=== PATIENT | female | born 1955 | race Caucasian/White ===

== ENCOUNTER 2017-01-14 20:03 | Observation (INO) ==
[2017-01-14] MEDS ORDERED: ASPIRIN PO STA (20:24)
[2017-01-14] MEDS ORDERED: ASPIRIN ONE (20:27)
[2017-01-14 20:48] LABS: MANUAL DIFF NEEDED? NO
[2017-01-14 20:55] LABS: BASO% 0.6 % (0.0-0.8); EOS# 0.33 X1000 (0.0-0.7); HEMATOCRIT 42.5 % (37.0-47.0); HEMOGLOBIN 13.9 g/dL (12.0-16.0); IMM GRAN% 1.2 % (0.0-0.5); LYMPH# 2.33 X1000 (1.2-3.4); LYMPH% 28.3 % (20.5-51.1); MCH 29.3 PG (27-31); MCHC 32.7 g/dL (33-37); MCV 89.7 FL (81-99); MONO# 0.87 X1000 (0.11-0.59); MONO% 10.6 % (1.7-9.3); MPV 11.7 FL (7.4-10.4); NEUT% 55.3 % (42.2-75.2); PLT 251 X1000 (130-400); RBC 4.74 XMIL (4.2-5.4)
--- NOTE | 2017-01-14 21:01 | Diag Imaging Result Doc PS360 ---
EXAM: CHEST-2 VIEWS - 01/14/2017 HISTORY: CP TECHNIQUE: Chest two views COMPARISON: 05/13/2016 FINDINGS: Heart size is normal. There is stable mild tortuosity of the thoracic aorta. The lungs appear clear. There is no pleural effusion or pneumothorax identified. There is thoracic spondylosis noted. IMPRESSION: No evidence of acute disease. Electronically signed by Bayron Keane 01/14/2017 8:59 PM
[2017-01-14 21:07] LABS: INR 0.96; PTT 24.1 Seconds (22.0-36.0)
[2017-01-14 21:22] LABS: AGAP 16; ALKALINE PHOSPHATASE 75 U/L (32-104); BUN 13 mg/dL (8-22); CALCIUM 9.6 mg/dL (8.8-10.2); CHLORIDE 106 mmol/L (98-107); CK PROFILE 83 U/L (24-173); COSMO 283; GOT 18 U/L (10-30); GPT 20 U/L (10-36); POTASSIUM 3.9 mmol/L (3.5-5.1); SODIUM 142 mmol/L (136-145); TCO2 20 mmol/L (25-35); TOTAL BILIRUBIN 0.37 mg/dL (0.20-1.00)
--- NOTE | 2017-01-15 01:04 | PROVIDER DOCUMENTATION ---
This chart was entered by Jeanette Trent Scribe, acting as scribe for Cory Samuels MD. 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 Followed by Dr. Fountain who saw pateint 1 week ago for chest discomfort.) Allergies/Adverse Reactions: Patient Allergies Allergy/AdvReac Type Severity Reaction Status Date / Time codeine Allergy DIZZINESS Verified 10/28/13 16:48 Home Medications: Home Medication List Medication Instructions Recorded Confirmed Last Taken Type Levothyroxine [Synthroid] 50 microgm PO DAILY 10/28/13 01/14/17 01/14/17 07:00 History - History of Present Illness-CP Nature of Presenting Problem: Pt is a 61 year old female who came to the ED with a cc of chest pain. Pt reports that she has had chest pain for one week and went to see her PCP. Pt reports the pain is like a pressure in the center of her chest that radiates to her neck and to her mid abdomen. Location: reports: central Chest Pain Radiation: reports: neck, epigastric Quality of Pain: reports: pressure Severity in ED: mild Onset/Duration: last week Timing: still present Context/Activities at Onset: reports: none Modifying Factors: improves with: nothing Associated Symptoms: reports: abdominal pain. denies: headache, nausea, syncope , vomiting Nitro Today/Relief: no nitro taken today Aspirin Treatment Today: no aspirin today Similar Symptoms Previously?: Yes Recently Seen Here or By Another Healthcare Provider: Yes Review of Systems - Adult - REVIEW OF SYSTEMS - ADULT Constitutional: denies: chills, fever Eyes: reports: no symptoms reported Ears, Nose, Mouth & Throat: denies: ear pain, nose pain, mouth swelling Cardiovascular: reports: chest pain. denies: heart murmur, orthopnea Respiratory: reports: no symptoms reported Gastrointestinal: reports: abdominal pain, diarrhea. denies: nausea, vomiting Genitourinary: denies: flank pain, hesitency Musculoskeletal: reports: no symptoms reported Integumentary: reports: no symptoms reported Neurological: reports: no symptoms reported Psychiatric: reports: no symptoms reported Endocrine: reports: no symptoms reported Hematologic/Lymphatic: reports: no symptoms reported Allergic/Immunologic: reports: no symptoms reported All Other Systems: Reviewed and Negative Past History - Adult - PAST MEDICAL HISTORY-ADULT Review of Records: reports: Old Records Reviewed, Nursing Assessment Review, Medications Reviewed, Social history reviewed & non-contributory. Major Childhood Illnesses: reports: denies history Cardiovascular: reports: A-Fib Respiratory: reports: denies history Gastrointestinal: reports: denies history Obstetrical/Gynecological: reports: denies history Genitourinary: reports: denies history Musculoskeletal: reports: denies history Neurological: reports: denies history Endocrine/Immune: reports: thyroid disorder Other Conditions: reports: denies history - PRIOR SURGERIES/PROCEDURES Surgical/Procedure History: reports: hysterectomy, BTL - IMMUNIZATION STATUS Childhood Immunizations: See Nurse Assessment Flu Vaccine: See Nurse Assessment - FAMILY HISTORY Family History: reviewed, not pertinent Physical Exam-General - PHYSICAL EXAM-ADULT Initial Vital Signs Reviewed: Yes - CONSTITUTIONAL General Appearance: appears well, alert, no apparent distress - EYES Eyes: PERRL/EOMI, pink conjunctivae - HEAD, EARS, NOSE, MOUTH & THROAT HENMT: normocephalic/atraumatic, moist mucous membranes - NECK Neck: non-tender, full range of motion - RESPIRATORY Respiratory: chest non-tender, lungs clear, normal breath sounds - CARDIOVASCULAR Cardiovascular: normal peripheral pulses, regular rate, rhythm - GASTROINTESTINAL (ABDOMEN) Abdominal Exam: normal bowel sounds, tenderness. negative: distended, guarding , rigid - MUSCULOSKELETAL Back Exam: normal inspection, no CVA tenderness Extremity: normal range of motion, non-tender - SKIN Integumentary: normal color, normal turgor - NEUROLOGIC Neurologic: grossly normal - PSYCHIATRIC Psych/Mental Status: normal mood/affect, normal thought content, normal thought process, oriented x 3 Progress - PLAN OF CARE/RESULTS Progress/Plan/Lab Results: Vital Signs - 8 hr 01/14/17 20:32 01/14/17 22:44 01/15/17 01:05 Temperature 98.0 F Pulse Rate 96 H 78 83 Respiratory Rate 18 25 H 16 Blood Pressure 153/94 145/79 148/92 O2 Sat by Pulse Oximetry 97 96 96 Laboratory Results - last 24 hr 01/14/17 01/14/17 01/14/17 20:31 20:31 20:31 WBC 8.23 RBC 4.74 Hgb 13.9 Hct 42.5 MCV 89.7 MCH 29.3 MCHC 32.7 L RDW Std Deviation 14.4 Plt Count 251 MPV 11.7 H Immature Gran % (Auto) 1.2 H Neut % (Auto) 55.3 Lymph % (Auto) 28.3 Waller % (Auto) 10.6 H Eos % (Auto) 4.0 Baso % (Auto) 0.6 Immature Gran # (Auto) 0.10 H Neut # (Auto) 4.55 Lymph # (Auto) 2.33 Waller # (Auto) 0.87 H Eos # (Auto) 0.33 Baso # (Auto) 0.05 PT INR PTT (Actin FS) D-Dimer 0.78 H Sodium 142 Potassium 3.9 Chloride 106 Carbon Dioxide 20 L Anion Gap 16 BUN 13 Creatinine 0.7 Estimated GFR/1.73 m2 > 60 BUN/Creatinine Ratio 19 Glucose 98 Calculated Osmolality 283 Calcium 9.6 Magnesium 2.0 Total Bilirubin 0.37 AST 18 ALT 20 Alkaline Phosphatase 75 Creatine Kinase 83 Troponin T Wzd-B-Gsqrtvbrpjc Pept Total Protein 7.0 Albumin 4.0 Globulin 3.0 Albumin/Globulin Ratio 1.3 01/14/17 01/14/17 01/14/17 20:31 20:31 20:31 WBC RBC Hgb Hct MCV MCH MCHC RDW Std Deviation Plt Count MPV Immature Gran % (Auto) Neut % (Auto) Lymph % (Auto) Waller % (Auto) Eos % (Auto) Baso % (Auto) Immature Gran # (Auto) Neut # (Auto) Lymph # (Auto) Waller # (Auto) Eos # (Auto) Baso # (Auto) PT 10.0 INR 0.96 PTT (Actin FS) 24.1 D-Dimer Sodium Potassium Chloride Carbon Dioxide Anion Gap BUN Creatinine Estimated GFR/1.73 m2 BUN/Creatinine Ratio Glucose Calculated Osmolality Calcium Magnesium Total Bilirubin AST ALT Alkaline Phosphatase Creatine Kinase Troponin T < 0.010 Ush-S-Gpuxcthamyz Pept 24 Total Protein Albumin Globulin Albumin/Globulin Ratio 01/14/17 01/14/17 23:43 23:43 WBC RBC Hgb Hct MCV MCH MCHC RDW Std Deviation Plt Count MPV Immature Gran % (Auto) Neut % (Auto) Lymph % (Auto) Waller % (Auto) Eos % (Auto) Baso % (Auto) Immature Gran # (Auto) Neut # (Auto) Lymph # (Auto) Waller # (Auto) Eos # (Auto) Baso # (Auto) PT INR PTT (Actin FS) D-Dimer Sodium Potassium Chloride Carbon Dioxide Anion Gap BUN Creatinine Estimated GFR/1.73 m2 BUN/Creatinine Ratio Glucose Calculated Osmolality Calcium Magnesium Total Bilirubin AST ALT Alkaline Phosphatase Creatine Kinase 80 Troponin T < 0.010 Fqw-C-Wonfmegzuaz Pept Total Protein Albumin Globulin Albumin/Globulin Ratio Orders Category Date Time Status CHEST-2 VIEWS [RAD] Stat Exams 01/14/17 20:24 Completed CTA [ANGIOGRAM/PULMONARY ARTERIES] [CT] Stat Exams 01/14/17 22:44 Taken CBC WITH ELECTRONIC DIFF [HEME] Stat Lab 01/14/17 20:31 Completed CK PROFILE [SP CHEM] Stat Lab 01/14/17 20:31 Completed CK TOTAL [CHEM] Stat Lab 01/14/17 23:43 Completed COMPREHENSIVE METABOLIC PANEL [CHEM] Stat Lab 01/14/17 20:31 Completed D-DIMER [CHEM] Stat Lab 01/14/17 20:31 Completed MAGNESIUM [CHEM] Stat Lab 01/14/17 20:31 Completed PRO B-NATRIURETIC PEPTIDE Stat Lab 01/14/17 20:31 Completed PROTIME WITH INR [COAG] Stat Lab 01/14/17 20:31 Completed PTT [COAG] Stat Lab 01/14/17 20:31 Completed TROPONIN T Stat Lab 01/14/17 20:31 Completed TROPONIN T Stat Lab 01/14/17 23:43 Completed Aspirin Med 01/14/17 20:27 Discontinued 325 mg .ROUTE .STK-MED ONE Aspirin Med 01/14/17 20:24 Discontinued 325 mg PO STAT STA EKG [EKG] Stat Ther 01/14/17 20:20 Ordered EKG [EKG] Stat Ther 01/14/17 22:[address] Stephenson,hospitalist, at 0100. report given to Dr. Stephenson at 0115 who will see patient Result Diagrams: 01/14/17 20:31 01/14/17 20:31 - XRAY 1 XRAY Study: Chest (NAD) - CT/MRI 1 CT Study: Angiogram, Thorax (no PE,) Departure - Departure Date of Disposition Decision: 01/15/17 Time of Disposition Decision: 01:18 DIAGNOSIS: Chest pain Qualifiers: Chest pain type: unspecified Qualified Code(s): R07.9 - Chest pain, unspecified Disposition: ADMITTED INPATIENT 09 Certified Medical Emergency: Emergent Condition: Stable Referrals and Follow-Ups: Fahad Fountain MD [Primary Care Provider] - - Critical Care Note This patient required my direct & personal management of CC.: Yes This chart was documented by the indicated scribe, (Jeanette Trent Scribe) and accurately reflects the services I performed and decisions made by me, Cory Samuels MD, as attested by the provider's signature.
[2017-01-15] MEDS ORDERED: SOLU-MEDROL IV ONE (02:05)
[2017-01-15] MEDS ORDERED: DUONEB (A & A) INH ONE (02:05)
[2017-01-15] MEDS ORDERED: COZAAR PO ONE (02:08)
--- NOTE | 2017-01-15 03:30 | HISTORY AND PHYSICAL ---
PRIMARY CARE PHYSICIAN: Fahad Fountain MD REASON FOR ADMISSION: Chest pain on and off for the last 2 weeks. Ms. Berta Avilez is a 59-year- old woman with no significant past medical history other than hypothyroidism and seasonal allergic rhinitis. She comes in complaining of chest pain which initially started 2 weeks ago and lasted all day, 24 hours. She says the chest pain as described as actually a chest pressure-like pain with some associated shortness of breath with this. After 24 hours the pain spontaneously resolved. A week later she had a recurrence of the same kind of pain, but this time the pain persisted for the entire week. The pain was also associated with shortness of breath and intermittent coughing paroxysms. The cough was dry. No fever, no chills, no leg swelling, PND or orthopnea. The shortness of breath and chest pain started 1 hour after she woke up, and was pretty much persisted until she fell off to sleep at night. It is slightly worse especially the shortness of breath and coughing with exertion. REVIEW OF SYSTEMS: Twelve systems were reviewed and negative with positive findings per HPI. Patient also complained of low back pain radiating down her radiating down her right leg and she was diagnosed with sciatica. She had gone to see her primary care provider who prescribed an inhaler for her and she says she has used it without any improvement. ALLERGIES: Codeine. MEDICATIONS: Synthroid 50 mcg daily. FAMILY HISTORY: Negative, no heart disease. Positive history for diabetes, asthma and thyroid disease. SURGICAL HISTORY: Tonsillectomy, hysterectomy, tubal ligation and pilonidal cyst excision. SOCIAL HISTORY: She does not smoke, drink, or use drugs. LABORATORY WORK: EKG showed normal sinus rhythm with left axis deviation and LVH. White count 8000, hemoglobin and hematocrit 13 and 40, platelets 251,000 with normal differential. Chemistry including magnesium, LFTs, troponin and proBNP all negative. She had mildly elevated D-dimer of 0.78, but chest x-ray and CTA angiogram were negative for any PE or infiltrate. Her angiogram only showed scattered atelectasis. PHYSICAL EXAMINATION: GENERAL: Middle-aged overweight woman who is not in acute distress. She is A and O x3 with normal mood and affect. VITAL SIGNS: Blood pressure is 154/82, heart rate 75, respirations 22, temperature is 98 degrees, 96% on room air. HEAD: Normocephalic, atraumatic. EYES: JOSE. EOMI. She is anicteric, not pale. ENT: Oropharyngeal exam is grossly normal. NECK: Supple. No JVD, carotid bruit or thyromegaly. NECK: Supple. No JVD. No lymphadenopathy. CHEST: Clear to auscultation, but on expiration patient has coughing fits. CARDIOVASCULAR: First and second heart sounds heard. No gallops, murmurs or rubs. Rhythm is regular. ABDOMEN: Protuberant, soft, nontender. No mass or organomegaly. Bowel sounds are hypoactive, but present at this time. EXTREMITIES: No edema, clubbing, or peripheral cyanosis. Pulses distally are intact with good volume. NEUROLOGICAL: Grossly intact. No focal deficits. SKIN: No breakdown, lesions or erythema. MUSCULOSKELETAL: Exam is grossly normal. ASSESSMENT: 1. Chest pain probably noncardiac in etiology. 2. Hypertension. 3. Hypothyroidism. 4. Seasonal allergic rhinitis. 5. Dyspnea probably mild persistent asthma. PLAN: At this time we will give patient high dose steroids and breathing treatments for now to see how she responds and continue with oral steroids. Schedule patient for a stress test later. Another reason why I elected to treat what I believed to be a mild persistent asthma is because I do not want anything that will preclude patient's ability to carry out the stress test. In that case, will need to avoid using adenosine and Persantine in this patient since she may have asthma. Start patient on Cozaar for her blood pressure and if not well controlled can add hydrochlorothiazide. A lipid panel has been ordered. Serial enzymes have been ordered also. I seriously doubt that she will rule in for an acute coronary event. 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 as a nurse, and because she has hypertension as one of her risk factors, it will be prudent to rule out any underlying ischemia. cc: MD Fahad Mcneal MD
[2017-01-15] MEDS ORDERED: TYLENOL PO PRN (03:45)
[2017-01-15] MEDS ORDERED: ZOFRAN IV PRN (03:45)
[2017-01-15] MEDS ORDERED: LOVENOX SUBQ SCH (03:45)
[2017-01-15] MEDS: DUONEB (A & A) INH SCH ×2 (03:55→11:34)
[2017-01-15 04:43] LABS: HDL 52 mg/dL (45-65); LDL 96 mg/dL; TRIGLYCERIDES 256 mg/dL (35-135); VLDL 51 mg/dL
--- NOTE | 2017-01-15 05:56 | Diag Imaging Result Doc PS360 ---
EXAM: ANGIOGRAM/PULMONARY ARTERIES HISTORY: sob TECHNIQUE: CT chest with contrast. Dose reduction protocol. COMPARISON: None. FINDINGS: Normal opacification of the pulmonary arteries and their major branches. Heart is mildly enlarged. No thoracic aortic aneurysm or dissection. No pleural effusions. Small mediastinal lymph nodes. No consolidation. Likely atelectasis in the lower lungs. Mild vascular distention. No bronchiectasis. IMPRESSION: 1.No pulmonary emboli 2.Mild cardiomegaly with pulmonary edema 3.Basilar atelectasis 4.A preliminary report was given at 11:39 PM Electronically signed by Andry Lo 01/15/2017 5:54 AM
--- NOTE | 2017-01-15 06:44 | EKG Report ---
Test Performed on : 01/14/2017 8:25:32 PM Test Reason : CS Blood Pressure : / mmHG Vent. Rate : 080 BPM Atrial Rate : 080 BPM P-R Int : 166 ms QRS Dur : 110 ms QT Int : 388 ms P-R-T Axes : 057 -53 060 degrees QTc Int : 447 ms Normal sinus rhythm. Possible Left atrial enlargement Incomplete right bundle branch block Left anterior fascicular block Left ventricular hypertrophy Abnormal ECG When compared with ECG of 16-APR-2011 07:30, No significant change was found Unconfirmed Result
[2017-01-15] MEDS ORDERED: SYNTHROID PO SCH (07:00)
[2017-01-15] MEDS ORDERED: PRILOSEC PO SCH (07:00)
[2017-01-15] MEDS ORDERED: ASPIRIN PO SCH (09:00)
[2017-01-15] MEDS ORDERED: PREDNISONE PO SCH (09:00)
--- NOTE | 2017-01-15 12:41 | Diag Imaging Result Document ---
PROCEDURE NAME: MYOCARDIAL PERF SCAN, STR/REST - 01/15/2017 STUDY: Exercise Cardiolite stress test. FINDINGS: Patient exercised on Tacho protocol for 5 minutes to a peak heart rate of 151, 95% predicted maximal heart rate achieved. She had mild chest discomfort prior to the test. There was no worsening of her symptoms. Mild shortness of breath noted. Normal blood pressure response to exercise. There was no dysrhythmias noted. Had 92% exercise capacity. Electrocardiogram was negative for ischemia. Cardiolite was injected. Gated SPECT images were obtained in standard views. Total of 16 mCi of Cardiolite was injected for the rest phase; 45 mCi of Cardiolite was injected for the stress phase. Gated SPECT images were obtained in standard views. Images revealed significant chest wall attenuation. There is better tracer uptake on the stress compared to the rest images. There is low-grade small-sized fixed defect in the left ventricular apex with normal wall motion. This is likely to represent attenuation defect. Left ventricular ejection fraction 71%. CONCLUSIONS: 1. Negative exercise stress electrocardiogram. 2. Patient had chest discomfort prior to her stress test. No worsening of symptoms. 3. There was no dysrhythmias noted. 4. Myocardial perfusion images revealed no evidence of ischemia. 5. There is low-grade small-sized fixed defect in the left ventricular apex with normal wall motion and significant chest wall attenuation. This is likely to represent attenuation defect. 6. Left ventricular ejection fraction 71%. cc: MD Jairo Jordan MD
[2017-01-15 13:03] VITALS: BP 150/74
--- NOTE | 2017-01-16 14:31 | DISCHARGE SUMMARY ---
ADMISSION DATE: 01/14/2017 DISCHARGE DATE: 01/15/2017 DISCHARGE DIAGNOSES: 1. Chest pain, noncardiac in etiology, likely secondary to costochondritis. 2. History of hypertension. 3. Hypothyroidism. 4. Seasonal allergies. 5. Possible asthma. HOSPITAL COURSE: 61-year-old female with a past medical history of hypothyroidism, hypertension and allergies came to the emergency department with a chief complaint of chest pain for the past 2 weeks apparently lasted all day 24 hours. She described the pain as a pressure -like with some associated shortness of breath. The pain increased with inspiration. Apparently it has been on and off as well. Sometimes associated with dry cough. No fever, no chills. No leg swelling. No PND or orthopnea. The shortness of breath and chest pain started 1 hour after she woke up and persisted until she fell off to sleep at night, we did a CT angiogram of the chest and stress test, EKG and a chest x-ray that did not show any abnormality, I explained all that to the patient. She told me that she probably has a history of a secondhand smoker and I recommended to get an appointment with a traffic signal technician as an outpatient. Probably this patient will need a pulmonary function test done. Also I recommended to go to the costumer. She is 61 so she needs to get a colonoscopy done and also they need to probably do a upper endoscopy to rule out any problem that can cause also chest pain. She seems to understand this. She was feeling better, all the lab work and images were normal so we decided to discharge this patient with strict followup by her primary care doctor, I recommended to go with a traffic signal technician to get a pulmonary function test and I recommended also to go with a costumer. PHYSICAL EXAM: Vital signs: Temperature 98 degrees, pulse 89, respiratory rate 18, blood pressure 150/74, oxygen saturation 95 on room air. HEENT: Head normocephalic. No trauma. PERRLA. Neck: Supple. No JVD. No masses. Central trachea. Chest: Clear to auscultation. No wheezing. No rales. Abdomen: Soft, nontender, nondistended. No hepatosplenomegaly. Extremities: No edema. No clubbing. No cyanosis. Neurological: The patient is alert and oriented x3. No focal neurological deficits. LABORATORY: Troponins negative x3. Triglyceride 256, cholesterol 199, LDL 96. DISCHARGE MEDICATIONS: Levothyroxine 50 mcg p.o. daily, prednisone 20 mg p.o. daily for 4 days, omeprazole 20 mg p.o. daily, acetaminophen 350 mg p.o. q.6 hours p.r.n. cc: Hardik Mckeon MD MTDD
== END 2017-01-15 15:55 | disposition home or self-care (01) ==
LOC: ED 20:03 → INTOOBSV 20:23 → SUATTDRO 01-15 02:44 → 4N 01-15 02:44
PROVIDERS: ATTEND Internal Medicine